=== PATIENT | male | born 1955 | race Hispanic/Latino ===

== ENCOUNTER 2018-07-28 08:26 | Outpatient (CLI) | payer OTHER ==
[2018-07-28 10:51] LABS: Chol/HDL Ratio 2.44 %
[2018-08-05 06:18] LABS: Vitamin D, 25-OH, D2 SEE SCANNED RESULT
== END 2018-07-28 08:27 | disposition home or self-care (01) ==
LOC: LAB 08:26
PROVIDERS: ATTEND Internal Medicine
DX: Z00.01 Encounter for general adult medical examination with abnormal findings (principal); E78.2 Mixed hyperlipidemia; E11.9 Type 2 diabetes mellitus without complications; E55.9 Vitamin D deficiency, unspecified; I10 Essential (primary) hypertension; E78.00 Pure hypercholesterolemia, unspecified; M19.90 Unspecified osteoarthritis, unspecified site
CPT/HCPCS: 36415; 80061; 82306; 83036

== ENCOUNTER 2018-11-17 08:31 | Outpatient (CLI) | payer OTHER ==
[2018-11-17 11:17] LABS: Chol/HDL Ratio 2.6 %
== END 2018-11-17 08:32 | disposition home or self-care (01) ==
LOC: LAB 08:31
PROVIDERS: ATTEND Internal Medicine
DX: Z12.5 Encounter for screening for malignant neoplasm of prostate (principal); E11.9 Type 2 diabetes mellitus without complications; E78.2 Mixed hyperlipidemia; E78.00 Pure hypercholesterolemia, unspecified
CPT/HCPCS: 36415; 80061; 83036; 84153

== ENCOUNTER 2019-08-24 11:09 | Outpatient (CLI) | payer MEDICARE, OTHER ==
--- NOTE | 2019-08-24 18:51 | Vascular Lab Report ---
DUPLEX DOPPLER LOWER EXTREMITY VEINS, RIGHT INDICATION: CELLULITIS, UNSPECIFIED. TECHNIQUE: Duplex doppler imaging was performed through the veins of the right lower extremity using venous compression and other maneuvers. COMPARISON: No relevant prior imaging study available. FINDINGS: Right Common femoral vein: Negative. Right Superficial femoral vein: Negative. Right Popliteal vein: Negative. Right Calf veins: Negative. Additional findings: None.. IMPRESSION: No sonographic evidence for DVT in the right lower extremity. Signer Name: Bradley Salas Jr, MD Signed: 08/24/2019 12:39 PM Workstation Name: [id number]
== END 2019-08-24 11:10 | disposition home or self-care (01) ==
LOC: VAS 11:09
PROVIDERS: ATTEND Internal Medicine
DX: L03.90 Cellulitis, unspecified (principal); R22.41 Localized swelling, mass and lump, right lower limb

== ENCOUNTER 2020-01-18 06:51 | Day surgery (SDC) | payer MEDICARE ==
[2020-01-18] MEDS ORDERED: ASPIRIN EC 325 MG TAB PO NR (07:16)
[2020-01-18 07:51] LABS: Basophils # (Auto) 0.1 K/mm3 (0.0-0.1); Basophils % (Auto) 0.5 % (0.0-1.8); Eosinophils # (Auto) 0.2 K/mm3 (0.0-0.4); Eosinophils % (Auto) 1.5 % (0.0-4.3); Hematocrit 42.4 % (35.5-45.6); Hemoglobin 14.6 gm/dl (11.8-15.2); Lymphocytes # (Auto) 2.1 K/mm3 (1.2-5.4); Lymphocytes % (Auto) 18.4 % (13.4-35.0); Mean Corpuscular HGB Conc 34 % (32-34); Mean Corpuscular Volume 92 fl (84-94); Platelet Count 253 K/mm3 (140-440); Red Blood Count 4.62 M/mm3 (3.65-5.03); Red Cell Distribution Width 13.2 % (13.2-15.2)
[2020-01-18 08:02] LABS: INR 1.07 (0.87-1.13)
[2020-01-18 08:03] LABS: Partial Thromboplastin Time 31.4 Sec. (24.2-36.6)
[2020-01-18 08:09] LABS: BUN/Creatinine Ratio 15; Blood Urea Nitrogen 17 mg/dL (9-20); Calcium 9.8 mg/dL (8.4-10.2); Hemolysis Index 4
[2020-01-18] MEDS ORDERED: MIDAZOLAM 2 MG/2 ML INJ ONE (08:33)
[2020-01-18] MEDS ORDERED: fentaNYL 100 MCG/2 ML INJ ONE (08:33)
[2020-01-18] MEDS ORDERED: HEPARIN/NS 5000 UNIT/500ML 1,500 ML IR ONE (08:33)
[2020-01-18] MEDS ORDERED: HEPARIN 10,000 UNITS/10 ML VIAL ONE (08:33)
[2020-01-18] MEDS ORDERED: NITROGLYCERIN SYRINGE 0 ML ONE (08:34)
[2020-01-18] MEDS ORDERED: VERAPAMIL 5 MG/2 ML INJ ONE (08:34)
[2020-01-18] MEDS: SODIUM CHLORIDE 0.9% 500 ML 500 ML IV SCH ×2 (08:40→09:38)
[2020-01-18] MEDS: LIDOCAINE (2%) 20 MG/1 ML VIAL 20 ML MDV INFILTRATI ONE ×2 (09:34→09:40)
[2020-01-18] MEDS ORDERED: LIDOCAINE (2%) 20 MG/1 ML VIAL 20 ML MDV INFILTRATI ONE (09:41)
--- NOTE | 2020-01-18 10:51 | Cardiac Catherization Report ---
HISTORY: The patient is a 64-year-old male with a history of an abnormal stress test and evidence of significant aortic stenosis, on echocardiography. Coronary angiography was recommended. PROCEDURE: Right and left heart catheterization via the right femoral artery and right femoral vein using 5-Upper [place] Beata catheters and a [place]-Angelina catheter. A pigtail catheter was also used as was a 3DRC and a multipurpose catheter. The left ventricle could not be catheterized. The aortic valve could not be crossed. Saturations and cardiac outputs were performed. COMPLICATIONS: None. PREOPERATIVE DIAGNOSES: Aortic stenosis and coronary artery disease. POSTOPERATIVE DIAGNOSES: Aortic stenosis and coronary artery disease. SEDATION: Intravenous Versed and fentanyl. TISSUE SAMPLES: None. ESTIMATED BLOOD LOSS: 5-10 mL. ANGIOGRAPHIC RESULTS: 1. Left ventricle: Could not be performed. 2. Aortic root injection: The aortic root injection demonstrates normal aortic root diameter. No aortic regurgitation, and a calcified aortic valve with restricted leaflet motion. 3. Right coronary artery: This vessel is the dominant vessel and it is diffusely irregular. Collateral blood flow can be seen from the distal right coronary artery branches to the distal LAD and second diagonal branch. 4. Left coronary artery: The left main has a distal 20% stenosis. Circumflex branch of the left coronary artery is diffusely irregular. The LAD is totally occluded proximally. The LAD is diffusely narrowed and seen via collateral blood flow from the right coronary artery. The first diagonal branch is small in caliber and contains a very proximal 70% stenosis. HEMODYNAMICS: Central aortic pressure 120/67, mean right atrial pressure 13, right ventricular pressure 34/14 with an end-diastolic pressure of 17. Pulmonary artery 37/17 with a mean of 25. Pulmonary capillary wedge pressure mean of 13. Cardiac output by thermodilution 5.09. Cardiac index by thermodilution 2.58. Saturations; pulmonary artery 74%, femoral artery 95%, right atrial saturation 74%. SVC saturation could not be obtained. FINAL IMPRESSION: 1. Aortic stenosis: The patient has significant aortic stenosis by echocardiography in the office. The aortic valve could not be crossed. The aortic root diameter is normal. There is no evidence of aortic regurgitation on the aortic root injection. 2. Coronary artery disease: The LAD is totally occluded proximally and there are collaterals from the distal LAD, mid LAD and second diagonal branch. 3. Mild pulmonary hypertension. PLAN: Office followup with Dr. Torre. Consider coronary artery bypass surgery with aortic valve replacement in addition to medical therapy and CAD risk factor modification. JOB# [id number] BIMAL/NTS
[2020-01-18] MEDS ORDERED: traMADol 50 MG TAB PO PRN (11:28)
[2020-01-18] MEDS ORDERED: HYDROcodone/ACETAMINOPHEN 5-325 MG TAB PO PRN (11:28)
--- NOTE | 2020-01-18 12:07 | Discharge Summary ---
Short Stay Discharge Plan Activity: advance as tolerated Diet: low fat, low cholesterol, low salt Additional Instructions: Hold Janumet 48 hours post cardiac cath then resume as previously prescribed. Follow up with: BLANCA MORGAN MD [Primary Care Provider] - 7 Days Forms: [facility] PCI D/C Instructions
[2020-01-18 13:05] VITALS: BP 112/56
== END 2020-01-18 14:30 | disposition home or self-care (01) ==
LOC: CATHLABREC 06:51
PROVIDERS: ATTEND Internal Medicine Cardiovascular Disease
DX: I35.0 Nonrheumatic aortic (valve) stenosis (principal); R94.39 Abnormal result of other cardiovascular function study; I25.10 Atherosclerotic heart disease of native coronary artery without angina pectoris; I27.20 Pulmonary hypertension, unspecified; E78.00 Pure hypercholesterolemia, unspecified; I10 Essential (primary) hypertension; M19.90 Unspecified osteoarthritis, unspecified site; E11.9 Type 2 diabetes mellitus without complications; Z79.899 Other long term (current) drug therapy; Z79.82 Long term (current) use of aspirin; Z87.891 Personal history of nicotine dependence; Z87.442 Personal history of urinary calculi; Z98.41 Cataract extraction status, right eye; Z98.42 Cataract extraction status, left eye; Z96.651 Presence of right artificial knee joint; Z98.890 Other specified postprocedural states
CPT/HCPCS: 36415; 80048; 85025; 85610; 85730; 93005; 93460; 99156; 99157; C1769; C1894; J1644; J2250; J3010; J7040; Q9967

== ENCOUNTER 2021-10-18 08:51 | Outpatient (CLI) | payer MEDICARE ==
[2021-10-18 12:13] LABS: BUN/Creatinine Ratio 18; Blood Urea Nitrogen 18 mg/dL (9-20); Calcium 10.1 mg/dL (8.4-10.2); Chol/HDL Ratio 2.69 %; HDL Cholesterol 39 mg/dL (40-59); Hemolysis Index 18; LDL Cholesterol,Direct 53 mg/dL (50-130)
== END 2021-10-18 08:52 | disposition home or self-care (01) ==
LOC: LABHHL 08:51
PROVIDERS: ATTEND Internal Medicine
DX: N28.9 Disorder of kidney and ureter, unspecified (principal); E78.2 Mixed hyperlipidemia; E11.9 Type 2 diabetes mellitus without complications
CPT/HCPCS: 36415; 80048; 80061; 83036